=== PATIENT | male | born 1965 | race Caucasian/White ===

== ENCOUNTER 2019-03-14 09:29 | Emergency (ER) | payer OTHER ==
--- NOTE | 2019-03-14 10:21 | CR ---
Left elbow: 3 views of the left elbow were obtained. Comparison: No previous elbow study. Small foreign body projected within the superficial soft tissues of the anterior proximal forearm. Minimal spur is noted at the attachment of the triceps tendon to the olecranon process. Joint spaces within the left elbow are preserved. No acute fracture or other abnormality is appreciated. Impression: 1. Small metallic foreign body as noted above. 2. Small olecranon spur. Diagnostic code #2 This report was dictated in [place] Standard Time
--- NOTE | 2019-03-14 10:29 | EDM.PDOC ---
ED HPI GENERAL MEDICAL PROBLEM - General Chief Complaint: Upper Extremity Injury/Pain Stated Complaint: INJURED LEFT ELBOW Time Seen by Provider: 03/14/19 09:30 Source of Information: Reports: Patient History Limitations: Reports: No Limitations - History of Present Illness INITIAL COMMENTS - FREE TEXT/NARRATIVE: HISTORY OF PRESENT ILLNESS: Patient is a 53-year-old male who was carrying drywall yesterday and felt a "pop" to his left arm near the antecubital fossa. Pain worse with turning steering wheel. He has a history of biceps rupture to his right arm years ago. Complains of soreness to the biceps itself when papated/squeezed, along with mild weakness. Denies any paresthesias. Denies any direct trauma or falls. Remainder of upper extremity without pain. REVIEW OF SYSTEMS: Other than the symptoms associated with the present events, the following is reported with regard to recent health: General: (-) fever. HENT: (-) congestion. Respiratory: (-) cough. Cardiovascular: (-) chest pain. GI: (-) abdominal pain. : (-) urinary complaints. Musculoskeletal: (+) left elbow and biceps pain. Endocrine: (-) generalized weakness. Neurological: (-) paresthesias Skin: (-) rash PAST MEDICAL HISTORY: reviewed as per nursing notes SOCIAL HISTORY: reviewed as per nursing notes, MEDICATIONS: Per nurse's note ALLERGIES: Per nurse's note, reviewed by me PHYSICAL EXAMINATION: GENERALIZED APPEARANCE: well developed, well nourished in no distress VITAL SIGNS: Per nurse's note, reviewed by me SKIN: Warm, dry; (-) cyanosis; (-) rash. HEAD: (-) scalp swelling, (-) tenderness. EYES: (-) conjunctival pallor, (-) scleral icterus. ENMT: (-) stridor; mucous membranes moist. NECK: (-) tenderness, (-) stiffness, CHEST AND RESPIRATORY: (-) rales, (-) rhonchi, (-) wheezes; breath sounds equal bilaterally. HEART AND CARDIOVASCULAR: (-) irregularity; (-) murmur, (-) gallop. EXTREMITIES: (+) biceps tendon more elevated on left than on right. decreased strength to biceps with flexion against resistance. triceps intact. TTP left biceps and antecubital fossa. 2+ radial pulses. cap refill <2 sec. sensation intact. remainder of UE wnl. NEURO AND PSYCH: Alert. Cranial nerves grossly intact; strength symmetric. gait steady DIAGNOSTICS: xray: report as per radiologist, reviewed by myself u/s: report as per radiologist, reviewed by myself EMERGENCY DEPARTMENT COURSE AND TREATMENT: Patient's condition remained stable during Emergency Department evaluation. small FB noted, pt frequently donates plasma, but location does not seem consistent with retained needle. He also works in construction. FB likely occurred years ago and is causing no complications or infection and no indication for removal at this time. Pt made aware of incidental findings. Concern for biceps tendon disruption. To follow- up with ortho in 1-2 days. Return immediately with any new or worsening symptoms. Placed in sling. NVI at time of discharge. PLAN AND FOLLOW-UP: Patient received written and verbal instructions regarding this condition. Return to ED immediately with any new or worsening symptoms. Follow up to be arranged by patient with ortho in 1-2 days for further evaluation. Given discharge precautions. Patient expressed verbal understanding. Left Elbow Pain Score (Numeric/FACES): 1 - Related Data Allergies Allergy/AdvReac Type Severity Reaction Status Date / Time No Known Allergies Allergy Verified 03/14/19 09:40 Home Meds: Home Meds Aspirin [Ecotrin EC] 1 tab PO DAILY 10/14/13 [History] Acetylcarnitine [Acetyl l-Carnitine] 500 mg PO BID 10/15/13 [History] Cholecalciferol (Vitamin D3) [Vitamin D3] 5,000 unit PO DAILY 10/15/13 [History] Green Tea [place] Extract [Green Tea Extract] 500 mg PO TID 10/15/13 [History] Magnesium Amino Acid Chelate [Magnesium] 27 mg PO TID 10/15/13 [History] Turmeric Root Extract [Turmeric] 1,000 mg PO TID 10/15/13 [History] Past Medical History - Past Surgical History HEENT Surgical History: Reports: Visual, Other (See Below) Other HEENT Surgeries/Procedures: R eye surgery Musculoskeletal Surgical History: Reports: Other (See Below) Other Musculoskeletal Surgeries/Procedures:: R bicep tendon repair Social & Family History - Tobacco Use Smoking Status *Q: Never Smoker - Recreational Drug Use Recreational Drug Use: No Review of Systems - Review of Systems Review Of Systems: See Below (see dictation) ED EXAM, GENERAL - Physical Exam Exam: See Below (see dictation) Course - Vital Signs Last Recorded V/S: Last Vital Signs Temp 96.9 F 03/14/19 09:32 Pulse 55 L 03/14/19 09:32 Resp 18 03/14/19 09:32 BP 137/71 03/14/19 09:32 Pulse Ox 97 03/14/19 09:32 Departure - Departure Time of Disposition: 11:25 Disposition: Home, Self-Care 01 Condition: Good Clinical Impression: Pain in upper limb, Biceps muscle tear - Discharge Information *PRESCRIPTION DRUG MONITORING PROGRAM REVIEWED*: Not Applicable *COPY OF PRESCRIPTION DRUG MONITORING REPORT IN PATIENT GRACE: Not Applicable Instructions: Biceps Tendon Disruption (Distal) Referrals: Neil Suarez DO [Physician] - 1 Day Forms: ED Department Discharge Additional Instructions: The following information is given to patients seen in the emergency department who are being discharged to home. This information is to outline your options for follow-up care. We provide all patients seen in our emergency department with a follow-up referral. The need for follow-up, as well as the timing and circumstances, are variable depending upon the specifics of your emergency department visit. If you don't have a primary care physician on staff, we will provide you with a referral. We always advise you to contact your personal physician following an emergency department visit to inform them of the circumstance of the visit and for follow-up with them and/or the need for any referrals to a consulting specialist. The emergency department will also refer you to a specialist when appropriate. This referral assures that you have the opportunity for follow-up care with a specialist. All of these measure are taken in an effort to provide you with optimal care, which includes your follow-up. Under all circumstances we always encourage you to contact your private physician who remains a resource for coordinating your care. When calling for follow-up care, please make the office aware that this follow-up is from your recent emergency room visit. If for any reason you are refused follow-up, please contact the Emergency Department at and asked to speak to the emergency department charge nurse. Sepsis Event Note - Evaluation Sepsis Screening Result: No Definite Risk - Focused Exam Vital Signs: Vital Signs Temp Pulse Resp BP Pulse Ox 03/14/19 09:32 96.9 F 55 L 18 137/71 97 Date Exam was Performed: 03/14/19 Time Exam was Performed: 11:23
--- NOTE | 2019-03-14 10:57 | US ---
Left extremity ultrasound: Multiple real-time images were obtained of the anterior elbow. Mild soft tissue swelling is seen. No discrete muscle or tendon abnormality is appreciated. Impression: 1. Mild soft tissue swelling. 2. If patient's symptoms warrant further evaluation, MRI could be considered. Diagnostic code #2 This report was dictated in [place] Standard Time
== END 2019-03-14 11:32 | disposition home or self-care (01) ==
LOC: MW.ED 09:29
DX: S46.212A Strain of muscle, fascia and tendon of other parts of biceps, left arm, initial encounter (principal); Z79.82 Long term (current) use of aspirin; X50.0XXA Overexertion from strenuous movement or load, initial encounter
CPT/HCPCS: 73080-26-LT; 73080-LT; 76881-26-LT; 76881-LT; 99283; 99283-25